=== PATIENT | male | born 1995 | race Caucasian/White ===

== ENCOUNTER 2023-08-12 09:50 | Day surgery (SDC) | payer BC ==
[~2023-08-12 09:50] MED LIST: Albuterol 0.083% 2.5 MG/3 ML Neb Soln NEB PRN; HYDROmorphone 1 MG/ML Syringe IVPUSH PRN; Lactated Ringers 1,000 ML IV SCH; Metoclopramide 10 MG/2 ML SDV IVPUSH PRN; Morphine 2 MG/ML SYRINGE IVPUSH PRN; Naloxone 0.4 MG/ML SDV IVPUSH PRN; Ondansetron 4 MG/2 ML SDV IVPUSH PRN; droPERidol 5 MG/2 ML SDV IVPUSH PRN; fentaNYL 50 MCG/ML SDV IVPUSH PRN
[2023-08-12] MEDS ORDERED: fentaNYL 100 MCG/2 ML SDV ONE (10:17)
[2023-08-12] MEDS ORDERED: Rocuronium Bromide 50 MG/5 ML Syringe ONE (10:17)
[2023-08-12] MEDS ORDERED: Dexamethasone 4 MG/ML 5 ML MDV ONE (10:17)
[2023-08-12] MEDS ORDERED: Ondansetron 4 MG/2 ML SDV ONE (10:17)
[2023-08-12] MEDS ORDERED: Propofol 200 MG/20 ML SDV ONE (10:17)
[2023-08-12] MEDS ORDERED: Sugammadex Sodium 200 MG/2 ML VIAL ONE (10:17)
[2023-08-12] MEDS ORDERED: Ketorolac 30 MG/ML SDV ONE (10:17)
[2023-08-12] MEDS ORDERED: Lidocaine 2% 5 ML SDV ONE (10:17)
[2023-08-12] MEDS ORDERED: Acetaminophen/HYDROcodone 325-5 MG Tab PO PRN (11:54)
[2023-08-12] MEDS ORDERED: Lactated Ringers 1,000 ML IV SCH (12:00)
== END 2023-08-12 13:15 | disposition home or self-care (01) ==
LOC: MW.SDS 09:50
PROVIDERS: ATTEND Surgery
DX: L05.01 Pilonidal cyst with abscess (principal); Z79.899 Other long term (current) drug therapy
CPT/HCPCS: 10081; J0131; J1100; J1885; J2405; J2704; J3010; J3490; J7120